=== PATIENT | male | born 1995 | race Caucasian/White ===

== ENCOUNTER 2016-11-15 17:38 | Emergency (ER) | payer BC ==
--- NOTE | 2016-11-15 18:50 | ER Document Report ---
ED Medical Screen (RME) - General Mode of Arrival: Ambulatory Information source: Patient TRAVEL OUTSIDE OF THE [place] IN LAST 30 DAYS: No <ROBIN KESSLER - Last Filed: 11/15/16 18:50> <MUKESH CALIXTO - Last Filed: 11/15/16 19:06> - General Chief Complaint: Abdominal Pain Stated Complaint: ABDOMINAL PAIN Time Seen by Provider: 11/15/16 18:50 Notes: Patient presents today with complaints of a colitis flare. Patient states while in the he would have approximately 1 colitis flare a month. Patient states he got out of the [employer] one year ago and he has ran out of the medications he would use for a flare which included cipro, flagyl, and zofran. Patient states this flare up has lasted for approximately 24 hours and has included diarrhea, vomiting, abdominal pain. (ROBIN KESSLER) - Related Data Allergies/Adverse Reactions: No Known Allergies Allergy (Unverified 11/15/16 18:02) Past Medical History Renal/ Medical History: Denies: Hx Peritoneal Dialysis <ROBIN KESSLER - Last Filed: 11/15/16 18:50> Review of Systems - Review of Systems Gastrointestinal: See HPI, Abdominal pain, Nausea, Vomiting <ROBIN KESSLER - Last Filed: 11/15/16 18:50> Physical Exam - General General appearance: Other - appears uncomfortable - Abdominal Inspection: Obese <ROBIN KESSLER - Last Filed: 11/15/16 18:50> - Abdominal Tenderness: Tender - MILD DIFFUSE <MUKESH CALIXTO - Last Filed: 11/15/16 19:06> - Vital signs Vitals: Temp Pulse BP Pulse Ox 97.8 F 91 146/90 H 98 11/15/16 17:58 11/15/16 17:58 11/15/16 17:58 11/15/16 17:58 Course <ROBIN KESSLER - Last Filed: 11/15/16 18:50> <MUKESH CALIXTO - Last Filed: 11/15/16 19:06> - Re-evaluation Re-evalutation: 11/15/16 19:05 I personally performed the services described in the documentation, reviewed and edited the documentation which was dictated to the scribe in my presence, and it accurately records my words and actions. (MUKESH CALIXTO) - Vital Signs Vital signs: Temp Pulse Resp BP Pulse Ox 97.8 F 91 146/90 H 98 11/15/16 17:58 11/15/16 17:58 11/15/16 17:58 11/15/16 17:58 Scribe Documentation - Scribe Written by Scribe:: Stephanie Edmonds, 11/15/2016 1854 acting as scribe for :: Elise <ROBIN KESSLER - Last Filed: 11/15/16 18:50>
[2016-11-15] MEDS ORDERED: ONDANSETRON 4 MG TAB.RAPDIS PO ONE (18:51)
[2016-11-15] MEDS ORDERED: NORMAL SALINE 1000 ML 1,000 ML IV ONE (18:51)
[2016-11-15 19:14] LABS: ABSOLUTE EOSINOPHILS # (AUTO) 0.7 10^3/uL (0.0-0.6); ABSOLUTE MONOCYTES (AUTO) 0.9 10^3/uL (0.1-1.4); ABSOLUTE NEUT (AUTO) 15.4 10^3/uL (1.7-8.2); BASOPHILS % (AUTO) 0.2 % (0-2); EOSINOPHILS % (AUTO) 3.8 % (0-6); HEMATOCRIT 50.5 % (37.9-51.0); HGB HCT DIFFERENCE 0.5; LYMPHOCYTES % (AUTO) 10.4 % (13-45); MEAN CORPUSCULAR HEMOGLOBIN 27.4 pg (27.0-33.4); MEAN CORPUSCULAR HGB CONC 33.7 g/dL (32.0-36.0); MEAN CORPUSCULAR VOLUME 81 fl (80-97); MONOCYTES % (AUTO) 4.9 % (3-13); RED BLOOD COUNT 6.22 10^6/uL (4.35-5.55); RED CELL DISTRIBUTION WIDTH 13.6 % (11.5-14.0); SEGMENTED NEUTROPHILS % (AUTO) 80.7 % (42-78); WHITE BLOOD COUNT 19.1 10^3/uL (4.0-10.5)
[2016-11-15 19:22] LABS: APPEARANCE,URINE CLEAR; BILIRUBIN,URINE NEGATIVE (NEGATIVE); GLUCOSE, URINE NEGATIVE (NEGATIVE); KETONES,URINE NEGATIVE (NEGATIVE); LEUKOCYTE ESTERASE,URINE NEGATIVE (NEGATIVE); NITRITE,URINE NEGATIVE (NEGATIVE); PROTEIN,URINE NEGATIVE (NEGATIVE); URINE SPECIFIC GRAVITY 1.024; UROBILINOGEN,URINE NEGATIVE mg/dL (<2.0)
[2016-11-15 19:34] LABS: ALANINE AMINOTRANSFERASE 52 U/L (21-72); ALBUMIN 4.8 g/dL (3.5-5.0); ALKALINE PHOSPHATASE 158 U/L (38-126); ANION GAP 13 (5-19); ASPARTATE AMINO TRANSFERASE 29 U/L (17-59); BILIRUBIN,DIRECT 0.5 mg/dL (0.0-0.4); BILIRUBIN,TOTAL 1.5 mg/dL (0.2-1.3); BLOOD UREA NITROGEN 15 mg/dL (7-20); CALCIUM 9.8 mg/dL (8.4-10.2); CARBON DIOXIDE 27 mmol/L (22-30); CHLORIDE 102 mmol/L (98-107); CREATININE RESULT 1.02 mg/dL (0.52-1.25); GLUCOSE 99 mg/dL (75-110); POTASSIUM 4.8 mmol/L (3.6-5.0); SODIUM 141.8 mmol/L (137-145); TOTAL PROTEIN 8.1 g/dL (6.3-8.2)
[2016-11-15] MEDS ORDERED: MORPHINE SULFATE IR 15 MG TABLET PO ONE (20:13)
[2016-11-15] MEDS ORDERED: PREDNISONE 20 MG TABLET PO ONE (20:15)
--- NOTE | 2016-11-15 20:18 | ER Document Report ---
ED General - General Chief Complaint: Abdominal Pain Stated Complaint: ABDOMINAL PAIN Time Seen by Provider: 11/15/16 18:50 Mode of Arrival: Ambulatory Notes: Patient is a 20-year-old male with past medical history of ulcerative colitis not currently on any chronic immune suppression who presents with 3 days of progressively worsening diffuse abdominal pain. Does describe it as a dull, cramping, constant pain. Nothing improves or worsens his pain. States in the past has been treated with Cipro and Flagyl but states this never seems to affect his symptoms. He has had a colonoscopy with a confirmed diagnosis of ulcerative colitis but does not currently follow with a GI physician. He notes that he has had associated vomiting today and did have several flecks of blood in one of his episodes of vomitus. He is otherwise able to tolerate fluid intake. He has had associated diarrhea with blood. He has not had a fever, body aches, headache, neck pain or altered mental status. He has not seen his primary care doctor regarding today's concerns. TRAVEL OUTSIDE OF THE [place] IN LAST 30 DAYS: No - Related Data Allergies/Adverse Reactions: No Known Allergies Allergy (Unverified 11/15/16 18:02) Past Medical History - General Information source: Patient - Social History Smoking Status: Never Smoker Frequency of alcohol use: None Drug Abuse: None Lives with: Spouse/Significant other Family History: Reviewed & Not Pertinent Renal/ Medical History: Denies: Hx Peritoneal Dialysis Past Surgical History: Reports: Hx Oral Surgery, Hx Tonsillectomy Review of Systems - Review of Systems Notes: Constitutional: Negative for fever. HENT: Negative for sore throat. Eyes: Negative for visual changes. Cardiovascular: Negative for chest pain. Respiratory: Negative for shortness of breath. Gastrointestinal: Positive for abdominal pain, vomiting and diarrhea. Genitourinary: Negative for dysuria. Musculoskeletal: Negative for back pain. Skin: Negative for rash. Neurological: Negative for headaches, weakness or numbness. 10 point ROS negative except as marked above and in HPI. Physical Exam - Vital signs Vitals: Temp Pulse BP Pulse Ox 97.8 F 91 146/90 H 98 11/15/16 17:58 11/15/16 17:58 11/15/16 17:58 11/15/16 17:58 Interpretation: Normal Notes: PHYSICAL EXAMINATION: GENERAL: Well-appearing, well-nourished and in no acute distress. HEAD: Atraumatic, normocephalic. EYES: Pupils equal round and reactive to light, extraocular movements intact, sclera anicteric, conjunctiva are normal. ENT: nares patent, oropharynx clear without exudates. Moist mucous membranes. NECK: Normal range of motion, supple without lymphadenopathy LUNGS: Breath sounds clear to auscultation bilaterally and equal. No wheezes rales or rhonchi. HEART: Regular rate and rhythm without murmurs ABDOMEN: Soft, nontender, normoactive bowel sounds. No guarding, no rebound. No masses appreciated. EXTREMITIES: Normal range of motion, no pitting or edema. No cyanosis. NEUROLOGICAL: No focal neurological deficits. Moves all extremities spontaneously and on command. PSYCH: Normal mood, normal affect. SKIN: Warm, Dry, normal turgor, no rashes or lesions noted. Course - Re-evaluation Re-evalutation: 11/15/16 20:19 Patient presents with symptoms consistent with an acute flare of his baseline ulcerative colitis. The patient states this feels exactly the same as his prior episodes. On exam he denies any focal abdominal pain. No focal rebound or guarding. The associated hematochezia which likewise he notes is consistent with his prior episodes. I do not believe an acute CT scan of the abdomen and pelvis is indicated as he has no focal abdominal tenderness on exam and I do not suspect based on his history or vitals an acute bowel perforation, intra- abdominal abscess, mesenteric ischemia, or bowel obstruction. Ureters are unremarkable with exception of a mild leukocytosis which would be consistent with acute ulcerative colitis flare. He will be started on a seven-day course of steroids, antiemetics and pain control. I've referred him to GI medicine for long-term management. At this time will discharge with return precautions and follow-up recommendations. Verbal discharge instructions given a the bedside and opportunity for questions given. Medication warnings reviewed. Patient is in agreement with this plan and has verbalized understanding of return precautions and the need for primary care follow-up in the next 24-72 hours. - Vital Signs Vital signs: Temp Pulse Resp BP Pulse Ox 98 F 83 18 147/87 H 99 11/15/16 20:30 11/15/16 20:30 11/15/16 20:30 11/15/16 20:30 11/15/16 20:30 - Laboratory Result Diagrams: 11/15/16 18:58 11/15/16 18:58 Laboratory results interpreted by me: 11/15/16 11/15/16 18:58 18:58 WBC 19.1 H RBC 6.22 H Seg Neutrophils % 80.7 H Lymphocytes % 10.4 L Absolute Neutrophils 15.4 H Absolute Eosinophils 0.7 H Total Bilirubin 1.5 H Direct Bilirubin 0.5 H Alkaline Phosphatase 158 H Discharge - Discharge Clinical Impression: Ulcerative colitis, acute Qualifiers: Digestive disease complication type: with rectal bleeding Qualified Code(s): K51.911 - Ulcerative colitis, unspecified with rectal bleeding Abdominal pain Qualifiers: Abdominal location: unspecified location Qualified Code(s): R10.9 - Unspecified abdominal pain Condition: Good Disposition: HOME, SELF-CARE Additional Instructions: Your abdominal pain is likely related to underlying ulcerative colitis. It is important to understand this is a serious diagnosis and needs to be followed regularly by a GI physician. You are being started on steroids for the next 7 days to help treat her symptoms. You have been sent home with Zofran which is for nausea. Take Tylenol 1000 mg every 6 hours as needed for pain. Use the oral morphine tablets as needed for severe pain that is not controlled by Tylenol. Return if you develop a fever greater than 101F, persistent vomiting , pass out, worsening abdominal pain, or have any other symptoms that are worrisome to you. Prescriptions: Morphine Sulfate [Morphine Ir 15 mg Tablet] 15 mg PO Q4HP PRN #12 tablet PRN Reason: Ondansetron [Zofran Odt 4 mg Tablet] 1 - 2 tab PO Q4H PRN #15 tab.rapdis PRN Reason: For Nausea/Vomiting Prednisone [Deltasone 20 mg Tablet] 3 tab PO DAILY 7 Days Referrals: MARIANNA MOLINA MD [ACTIVE STAFF] - Follow up as needed
[2016-11-15 20:57] VITALS: BP 147/87
== END 2016-11-15 20:30 | disposition home or self-care (01) ==
LOC: ER 17:38
DX: K51.911 Ulcerative colitis, unspecified with rectal bleeding (principal); R10.9 Unspecified abdominal pain
CPT/HCPCS: 99284; 36415; 85025; 80053; 81001; S0119; J7512; J7030